=== PATIENT | male | born 1960 | race African-American/Black ===

== ENCOUNTER 2017-07-28 08:15 | Emergency (ER) | payer OTHER ==
[~2017-07-28] VITALS: Ht 180.3 cm; Wt 114.3 kg
[2017-07-28] MEDS ORDERED: METFORMIN500 MG PO (08:25)
[2017-07-28] MEDS ORDERED: ZESTRIL40 MG PO (08:25)
[2017-07-28] MEDS ORDERED: HYDR25T PO (08:26)
[2017-07-28] MEDS ORDERED: AZOR 5-20 MG T1 EACH PO (08:27)
[2017-07-28] MEDS ORDERED: Motrin,Rufen800 MG PO (10:42)
[2017-07-28] MEDS ORDERED: CYCLOBENZAPRINE5 M3 PO (10:42)
== END 2017-07-28 10:48 | disposition home or self-care (01) ==
LOC: ED 08:15
DX: S30.0XXA Contusion of lower back and pelvis, initial encounter (principal); S20.222A Contusion of left back wall of thorax, initial encounter; F17.200 Nicotine dependence, unspecified, uncomplicated; Z79.899 Other long term (current) drug therapy; W01.0XXA Fall on same level from slipping, tripping and stumbling without subsequent striking against object, initial encounter; Y93.E1 Activity, personal bathing and showering; Y92.89 Other specified places as the place of occurrence of the external cause; Y99.9 Unspecified external cause status